=== PATIENT | male | born 1950 | race Caucasian/White ===

== ENCOUNTER → 2019-11-19 | Outpatient (CLI) | payer MEDICARE | END | disposition home or self-care (01) | LOC: CFH 08:07 | PROVIDERS: ATTEND Internal Medicine Cardiovascular Disease | DX: I25.10 Atherosclerotic heart disease of native coronary artery without angina pectoris (principal) | CPT/HCPCS: 78452; 93017; A9502 ==

== ENCOUNTER 2020-10-07 11:34 | Day surgery (SDC) | payer MEDICARE ==
[~2020-10-07] VITALS: Ht 177.8 cm; Wt 100.0 kg
[2020-10-07] MEDS ORDERED: LATA7.5D EACHEYE (12:06)
[2020-10-07] MEDS ORDERED: ASPI81TA45 PO (12:06)
[2020-10-07] MEDS ORDERED: testosterone cream TP (12:06)
[2020-10-07] MEDS ORDERED: CHOL10003 PO (12:06)
[2020-10-07] MEDS ORDERED: [UNRECOGNIZED DRUG - REMARK] PO (12:06)
[2020-10-07 12:15] VITALS: BP 158/105
[2020-10-07] MEDS ORDERED: DIPHENHYDRAMINE 50 MG/ML, 1ML ONE (12:27)
[2020-10-07] MEDS ORDERED: SODIUM CHLORIDE 0.9% 1,000 ML IV SCH ×2 (12:30→15:00)
[2020-10-07] MEDS ORDERED: DIPHENHYDRAMINE 50 MG/ML, 1ML IVPush ONE (12:30)
[2020-10-07 12:34] LABS: BASOPHILS % (AUTO) 1 % (0-1); EOSINOPHILS % (AUTO) 3 % (1-7); LYMPHOCYTES % (AUTO) 37 % (22-44); MEAN CORPUSCULAR HEMOGLOBIN 29.6 pg (27.5-34.5); MEAN CORPUSCULAR HGB CONC 33.5 g/dL (33.2-36.2); MEAN PLATELET VOLUME 8.4 fL (7.4-10.4); MONOCYTES % (AUTO) 10 % (2-9); NEUTROPHILS % (AUTO) 50 % (42-75); PLATELET COUNT 260 x10^3/uL (130-400); RED BLOOD COUNT 5.87 x10^6/uL (4.38-5.82); RED CELL DISTRIBUTION WIDTH 14.7 % (9.4-14.8)
[2020-10-07 12:43] LABS: ANION GAP 3 mmol/L (5-15); CALCIUM 8.6 mg/dL (8.5-10.1); CHLORIDE 110 mmol/L (98-107); CREATININE 0.99 mg/dL (0.7-1.3); INTERNATIONAL NORMALIZED RATIO 1.17 (0.93-1.1); PROTHROMBIN TIME 12.5 Seconds (9.6-11.5)
[2020-10-07 13:01] LABS: MD MORPH REVIEW ONLY
[2020-10-07 13:02] LABS: <PLATELET ESTIMATE> ADEQUATE; <RBC MORPHOLOGY> NORMAL; LARGE PLATELETS 1+
[2020-10-07] MEDS ORDERED: VERAPAMIL 2.5 MG/ML, 2ML ONE (13:42)
[2020-10-07] MEDS ORDERED: FENTANYL PF 100 MCG/2ML ONE (13:42)
[2020-10-07] MEDS ORDERED: MIDAZOLAM 1 MG/ML, 2ML ONE (13:42)
[2020-10-07] MEDS ORDERED: HEPARIN 1,000 UNITS/ML, 10ML ONE (13:43)
[2020-10-07] MEDS ORDERED: LIDOCAINE-MPF 1%, 5ML ONE (13:43)
== END 2020-10-07 16:57 | disposition home or self-care (01) ==
LOC: CACL 11:34
PROVIDERS: ATTEND Internal Medicine Cardiovascular Disease
DX: R93.1 Abnormal findings on diagnostic imaging of heart and coronary circulation (principal); I25.119 Atherosclerotic heart disease of native coronary artery with unspecified angina pectoris; E78.2 Mixed hyperlipidemia; E66.3 Overweight; Z68.32 Body mass index [BMI] 32.0-32.9, adult; Z79.01 Long term (current) use of anticoagulants; Z79.82 Long term (current) use of aspirin; Z79.899 Other long term (current) drug therapy
CPT/HCPCS: 36415; 80048; 83880; 85025; 85610; 93454; 99156; 99157; C1760; C1894; J1200; J1644; J2250; J3010; Q9967

== ENCOUNTER → 2020-10-13 | Outpatient (CLI) | payer MEDICARE ==
[~2020-10-13] MED LIST: ASPI81TA45 PO; CHOL10003 PO; LATA7.5D EACHEYE; [UNRECOGNIZED DRUG - REMARK] PO; testosterone cream TP
== END | disposition home or self-care (01) ==
LOC: CVU 08:54
PROVIDERS: ATTEND Internal Medicine Cardiovascular Disease
DX: I25.10 Atherosclerotic heart disease of native coronary artery without angina pectoris (principal)
CPT/HCPCS: 93880